=== PATIENT | female | born 1950 | race Asian ===

== ENCOUNTER 2018-11-22 06:36 | Day surgery (SDC) | payer OTHER ==
[~2018-11-22] VITALS: Ht 144.8 cm; Wt 45.5 kg
[2018-11-22] MEDS ORDERED: MIDAZOLAM HCL 2 MG/2 ML VIAL IVP ONE (06:37)
[2018-11-22] MEDS ORDERED: FentaNYL CITRATE-PF 100 MCG/2 ML VIAL IVP ONE (06:37)
[2018-11-22] MEDS ORDERED: TETRACAINE HCL/PF 0.5% 4 ML OPHTHALMIC SOLUTION ONE (06:43)
[2018-11-22] MEDS ORDERED: CYCLOPENTOLATE HCL 2% 2 ML OPHTHALMIC SOLUTION ONE (06:43)
[2018-11-22] MEDS ORDERED: RINGERS SOLUTION,LACTATED 500 ML IV ONE ×2 (06:43→07:00)
[2018-11-22] MEDS ORDERED: PHENYLEPHRINE HCL 2.5% 2 ML OPHTHALMIC SOLUTION ONE (06:43)
[2018-11-22] MEDS ORDERED: DICLOFENAC SODIUM 0.1% 2.5 ML OPHTHALMIC SOLUTION ONE (06:43)
[2018-11-22] MEDS ORDERED: MOXIFLOXACIN HCL 0.5% 3 ML OPHTHALMIC SOLUTION ONE (06:43)
[2018-11-22] MEDS ORDERED: ACETAMINOPHEN 325 MG TABLET PO PRN (07:00)
[2018-11-22] MEDS: PHENYLEPHRINE HCL 2.5% 2 ML OPHTHALMIC SOLUTION OD SCH ×3 (07:25→07:36)
[2018-11-22] MEDS: CYCLOPENTOLATE HCL 2% 2 ML OPHTHALMIC SOLUTION OD SCH ×3 (07:25→07:36)
[2018-11-22] MEDS: TETRACAINE HCL/PF 0.5% 4 ML OPHTHALMIC SOLUTION OD SCH ×3 (07:25→07:35)
[2018-11-22] MEDS: DICLOFENAC SODIUM 0.1% 2.5 ML OPHTHALMIC SOLUTION OD SCH ×3 (07:26→07:36)
[2018-11-22] MEDS: MOXIFLOXACIN HCL 0.5% 3 ML OPHTHALMIC SOLUTION OD SCH ×3 (07:26→07:36)
[2018-11-22] MEDS ORDERED: POVIDONE-IODINE 10% 15 ML SOLUTION UD ONE (17:27)
[2018-11-22] MEDS ORDERED: PrednisoLONE ACETATE 1% 5 ML OPHTHALMIC SUSPENSION ONE (17:27)
[2018-11-22] MEDS ORDERED: LIDOCAINE/PF 1% 2 ML VIAL ONE (17:27)
[2018-11-22] MEDS ORDERED: EPINEPHrine 1:1,000 [1 MG/ML] AMP ONE (17:27)
[2018-11-22] MEDS ORDERED: NEOMYCIN/POLYMYXIN B/DEXAMETH 3.5 GM OPHTHALMIC OINTMENT ONE (17:27)
[2018-11-22] MEDS ORDERED: HYALURONATE SODIUM 12 MG/ML 0.8 ML SYRINGE IO ONE (17:27)
== END 2018-11-22 09:10 | disposition home or self-care (01) ==
LOC: SURGERY 06:36
PROVIDERS: ATTEND Ophthalmology
DX: H25.11 Age-related nuclear cataract, right eye (principal); E78.00 Pure hypercholesterolemia, unspecified; F17.210 Nicotine dependence, cigarettes, uncomplicated
CPT/HCPCS: 66984; 93005; C1780; J0171; J2250; J3010; J3490 ×2; J7120

== ENCOUNTER 2019-01-17 06:45 | Day surgery (SDC) | payer OTHER ==
[~2019-01-17] VITALS: Ht 144.8 cm; Wt 45.5 kg
[~2019-01-17 06:45] MED LIST: RINGERS SOLUTION,LACTATED 500 ML IV ONE
[2019-01-17] MEDS ORDERED: FentaNYL CITRATE-PF 100 MCG/2 ML VIAL IVP ONE (06:46)
[2019-01-17] MEDS ORDERED: MIDAZOLAM HCL 2 MG/2 ML VIAL IVP ONE (06:46)
[2019-01-17] MEDS ORDERED: RINGERS SOLUTION,LACTATED 500 ML IV ONE (07:16)
[2019-01-17] MEDS ORDERED: PHENYLEPHRINE HCL 2.5% 2 ML OPHTHALMIC SOLUTION ONE (07:18)
[2019-01-17] MEDS ORDERED: FLURBIPROFEN SODIUM 0.03% 2.5 ML OPHTHALMIC SOLUTION ONE (07:18)
[2019-01-17] MEDS ORDERED: TROPICAMIDE 1% 2 ML OPHTHALMIC SOLUTION ONE (07:18)
[2019-01-17] MEDS ORDERED: MOXIFLOXACIN HCL 0.5% 3 ML OPHTHALMIC SOLUTION ONE (07:18)
[2019-01-17] MEDS ORDERED: TETRACAINE HCL/PF 0.5% 4 ML OPHTHALMIC SOLUTION ONE (07:18)
[2019-01-17] MEDS ORDERED: CYCLOPENTOLATE HCL 1% 2 ML OPHTHALMIC SOLUTION ONE (07:18)
[2019-01-17] MEDS ORDERED: ACETAMINOPHEN 325 MG TABLET PO PRN (07:30)
[2019-01-17] MEDS ORDERED: TETRACAINE HCL/PF 0.5% 4 ML OPHTHALMIC SOLUTION OS ONE (07:30)
[2019-01-17] MEDS: TROPICAMIDE 1% 2 ML OPHTHALMIC SOLUTION OS SCH ×2 (07:31→07:46)
[2019-01-17] MEDS: CYCLOPENTOLATE HCL 1% 2 ML OPHTHALMIC SOLUTION OS SCH ×3 (07:31→07:46)
[2019-01-17] MEDS: MOXIFLOXACIN HCL 0.5% 3 ML OPHTHALMIC SOLUTION OS SCH ×3 (07:32→07:46)
[2019-01-17] MEDS: PHENYLEPHRINE HCL 2.5% 2 ML OPHTHALMIC SOLUTION OS SCH ×3 (07:32→07:46)
[2019-01-17] MEDS: FLURBIPROFEN SODIUM 0.03% 2.5 ML OPHTHALMIC SOLUTION OS SCH ×3 (07:32→07:46)
== END 2019-01-17 09:30 | disposition home or self-care (01) ==
LOC: SURGERY 06:45
PROVIDERS: ATTEND Ophthalmology
DX: H26.8 Other specified cataract (principal); E78.00 Pure hypercholesterolemia, unspecified
CPT/HCPCS: 66984; C1780; J2250; J3010; J7120